=== PATIENT | male | born 1995 | race Caucasian/White ===

== ENCOUNTER 2016-05-13 09:18 | Emergency (ER) | payer OTHER | END 2016-05-13 10:37 | disposition home or self-care (01) | LOC: FER 09:18 | DX: S60.221A Contusion of right hand, initial encounter (principal); F17.210 Nicotine dependence, cigarettes, uncomplicated; V43.52XA Car driver injured in collision with other type car in traffic accident, initial encounter; Y92.410 Unspecified street and highway as the place of occurrence of the external cause | CPT/HCPCS: 73130; 99284 ==

== ENCOUNTER 2016-08-20 10:48 | Emergency (ER) | payer OTHER ==
[2016-08-20 11:47] LABS: BASOPHIL 0.5 % (0-2); EOSINOPHIL 2.6 % (0-5); HCT 44.6 % (42.0-52.0); HGB 15.9 g/dl (13.2-18.0); LYMPHOCYTE 31.6 % (15-48); MCH 29.8 pg (25.0-31.0); MCHC 35.7 g/dL (32.0-36.0); MCV 83.5 fL (78.0-100.0); MPV 10.1 fL (6.0-9.5); NEUTROPHIL 53.3 % (41-80); PLT 216 K/uL (150-400); RBC 5.34 M/uL (4.70-6.00); RDW 12.8 % (11.5-14.0); WBC 6.2 K/uL (4.0-10.5)
[2016-08-20 11:55] LABS: ALBUMIN 5.1 g/dL (3.5-5.0); BILIRUBIN - TOTAL 1.5 mg/dL (0.1-1.0); CREATININE 0.9 mg/dL (0.7-1.2); GLOBULIN (CALCULATION) 2.8 g/dL (2.2-4.2); POTASSIUM 3.8 mmol/L (3.5-5.1); TOTAL PROTEIN 7.9 g/dL (6.4-8.3)
[2016-08-20 13:51] LABS: BILIRUBIN 1+ mg/dL (NEGATIVE); BLOOD NEGATIVE Ery/uL (NEGATIVE); CLARITY CLEAR (CLEAR); COLOR YELLOW (YELLOW); GLUCOSE (U) NORMAL (NORMAL); KETONE (U) NEGATIVE (NEGATIVE); LEUKOCYTES NEGATIVE Leu/uL (NEGATIVE); NITRITE NEGATIVE (NEGATIVE); PROTEIN TRACE (LOW) mg/dL (NEGATIVE); SPECIFIC GRAVITY 1.025 (1.001-1.030)
[2016-08-20 13:59] LABS: BACTERIA TRACE
[2016-08-20 14:03] LABS: RENAL EPITHELIAL CELLS RARE
[2016-08-20 14:05] LABS: AMPHETAMINES POSITIVE (NEGATIVE); BENZODIAZEPINES POSITIVE (NEGATIVE); COCAINE POSITIVE (NEGATIVE); MARIJUANA (THC) POSITIVE (NEGATIVE)
[2016-08-20 14:06] LABS: BARBITURATES NEGATIVE (NEGATIVE); METHADONE NEGATIVE (NEGATIVE); TRICYCLIC ANTIDEPRESSANT NEGATIVE (NEGATIVE)
== END 2016-08-20 18:20 | disposition home or self-care (01) ==
LOC: FER 10:48
PROVIDERS: Nurse Practitioner Family
DX: F19.10 Other psychoactive substance abuse, uncomplicated (principal); F14.10 Cocaine abuse, uncomplicated; F12.10 Cannabis abuse, uncomplicated
CPT/HCPCS: 36415; 80053; 80305; 81001; 85025; G0480; J2310

== ENCOUNTER 2020-03-19 16:29 | Emergency (ER) | payer OTHER ==
[~2020-03-19 16:29] MED LIST: VOLTAREN **OUT75 MG PO
[2020-03-19] MEDS ORDERED: IBUPROFEN800 MG PO (19:36)
[2020-03-19] MEDS ORDERED: CYCLOBENZAPRINE10 MG PO (19:36)
== END 2020-03-19 19:54 | disposition home or self-care (01) ==
LOC: FER 16:29
DX: S42.032A Displaced fracture of lateral end of left clavicle, initial encounter for closed fracture (principal); F41.9 Anxiety disorder, unspecified; F17.210 Nicotine dependence, cigarettes, uncomplicated; Z79.899 Other long term (current) drug therapy; Y93.23 Activity, snow (alpine) (downhill) skiing, snowboarding, sledding, tobogganing and snow tubing; W17.89XA Other fall from one level to another, initial encounter; Y92.830 Public park as the place of occurrence of the external cause
CPT/HCPCS: 73030

== ENCOUNTER 2021-07-04 08:26 | Emergency (ER) | payer OTHER ==
[~2021-07-04 08:26] MED LIST changes: +CYCLOBENZAPRINE10 MG PO; +IBUPROFEN800 MG PO
[2021-07-04 09:32] LABS: CORONAVIRUS 2019 SARS-COV-2 NEGATIVE (NEGATIVE); INFLUENZA A NAA POSITIVE (NEGATIVE)
== END 2021-07-04 09:48 | disposition home or self-care (01) ==
LOC: FER 08:26
PROVIDERS: Emergency Medicine
DX: J10.1 Influenza due to other identified influenza virus with other respiratory manifestations (principal); F17.290 Nicotine dependence, other tobacco product, uncomplicated; Z20.822 Contact with and (suspected) exposure to COVID-19; Z28.310 Unvaccinated for COVID-19
CPT/HCPCS: 99283; U0002